=== PATIENT | female | born 1985 | race Caucasian/White ===

== ENCOUNTER 2019-07-06 14:06 | Emergency (ER) | payer MEDICARE, MEDICAID ==
--- NOTE | 2019-07-06 15:07 | CT ---
EXAM: CT Facial Bones WO Con PROVIDED CLINICAL HISTORY: Patient fell off truck and hit nose on ground injuring nose. Trauma. COMPARISON: None FINDINGS: There are fractures involving the bilateral nasal bone with slight deviation of the nasal bones to th e left. There is also a nondisplaced fracture involving the bony nasal septum posteriorly. There is deviation of the nasal septum to the right. No additional fracture is seen involving the facial bones . Temporomandibular joints are normally located. Visualized upper cervical spine demonstrates no fracture or subluxation. There is mucosal thickening present in each maxillary antrum as well as ethmoidal air cells bilateral ly with minimal mucosal thickening in the right frontoethmoidal recess. Question of a small amount of hemorrhage in the right maxillary antrum. The orbits are symmetric in appearance bilaterally. No postseptal inflammatory changes or hematoma is identified. Mastoid air cells are clear. IMPRESSION: 1. Fractures involving the nasal bone bilaterally with nondisplaced fracture involving the posterior bony nasal septum. 2. Mucosal thickening in each maxillary antrum with probable small amount of hemorrhage in the right maxillary antrum. There is also mucosal thickening in the anterior ethmoidal air cells.
[2019-07-06] MEDS ORDERED: Adacel (T-DAP) 0.5 ML SYRINGE ONE (15:41)
== END 2019-07-06 15:50 | disposition home or self-care (01) ==
LOC: MADERS 14:06
DX: S02.2XXA Fracture of nasal bones, initial encounter for closed fracture (principal); E03.9 Hypothyroidism, unspecified; Z79.899 Other long term (current) drug therapy; W01.198A Fall on same level from slipping, tripping and stumbling with subsequent striking against other object, initial encounter
CPT/HCPCS: 70486; 90471; 90715